=== PATIENT | female | born 1955 | race American Indian/Alaskan Native ===

== ENCOUNTER 2016-11-05 23:42 | Emergency (ER) | payer MEDICAID ==
--- NOTE | 2016-11-06 04:33 | Emergency Department Report ---
ED ENT HPI - General Chief complaint: Earache Stated complaint: EAR PAIN Time Seen by Provider: 11/06/16 04:24 Source: patient Mode of arrival: Ambulatory Limitations: No Limitations - History of Present Illness Initial comments: 11-year-old -[place] female with a past medical history of hypertension diabetes comes in for complaint of right ear being clogged for 5 days. Patient reports she's tried peroxide water at home but without success. She does not have a primary care provider at this time [place] She reports that she forgot to take her blood pressure medicine for 2 days. She reports that she does have blood pressure medication she has not with her. -: days(s) (5) Location: R ear Severity scale (0 -10): 6 Quality: other (difficulty hearing) - Related Data Home Medications Medication Instructions Recorded Confirmed Last Taken Carvedilol [Coreg] 6.25 mg PO BID 11/06/16 11/06/16 11/04/16 Insulin Glargine,Hum.rec.anlog 25 units SQ QHS 11/06/16 11/06/16 11/05/16 [Lantus Solostar] Insulin NPL/Insulin Lispro 8 units SQ TID 11/06/16 11/06/16 11/06/16 [HumaLOG Mix 75-25 Kwikpen] Losartan [Cozaar] 100 mg PO QDAY 11/06/16 11/06/16 11/04/16 metFORMIN [Glucophage] 500 mg PO QDAY 11/06/16 11/06/16 11/04/16 Allergies Allergy/AdvReac Type Severity Reaction Status Date / Time No Known Allergies Allergy Unverified 11/06/16 00:34 ED Dental HPI - General Chief complaint: Earache Stated complaint: EAR PAIN Time Seen by Provider: 11/06/16 04:24 Source: patient Mode of arrival: Ambulatory Limitations: No Limitations - Related Data Home Medications Medication Instructions Recorded Confirmed Last Taken Carvedilol [Coreg] 6.25 mg PO BID 11/06/16 11/06/16 11/04/16 Insulin Glargine,Hum.rec.anlog 25 units SQ QHS 11/06/16 11/06/16 11/05/16 [Lantus Solostar] Insulin NPL/Insulin Lispro 8 units SQ TID 0411/06/16 11/06/16 [HumaLOG Mix 75-25 Kwikpen] Losartan [Cozaar] 100 mg PO QDAY 11/06/16 11/06/16 11/04/16 metFORMIN [Glucophage] 500 mg PO QDAY 11/06/16 11/06/16 11/04/16 Allergies Allergy/AdvReac Type Severity Reaction Status Date / Time No Known Allergies Allergy Unverified 11/06/16 00:34 ED Review of Systems ROS: Stated complaint: EAR PAIN Other details as noted in HPI ED Past Medical Hx - Past Medical History Previous Medical History?: Yes Hx Hypertension: Yes Hx Diabetes: Yes Hx Arthritis: Yes - Surgical History Past Surgical History?: No - Social History Smoking Status: Current Every Day Smoker Substance Use Type: None - Medications Home Medications: Home Medications Medication Instructions Recorded Confirmed Last Taken Type Carvedilol [Coreg] 6.25 mg PO BID 11/06/16 11/06/16 11/04/16 History Insulin Glargine,Hum.rec.anlog 25 units SQ QHS 11/06/16 11/06/16 11/05/16 History [Lantus Solostar] Insulin NPL/Insulin Lispro 8 units SQ TID 11/06/16 11/06/16 11/06/16 History [HumaLOG Mix 75-25 Kwikpen] Losartan [Cozaar] 100 mg PO QDAY 11/06/16 11/06/16 11/04/16 History metFORMIN [Glucophage] 500 mg PO QDAY 11/06/16 11/06/16 11/04/16 History ED Physical Exam - General Limitations: No Limitations - Head Head exam: Present: atraumatic, normocephalic - Eye Eye exam: Present: normal appearance, PERRL, EOMI - ENT ENT exam: Present: normal exam, mucous membranes dry - Expanded ENT Exam Expanded TM/Canal exam: Loss of Landmarks: Right TM, Foreign Body: Right TM, Cerumen Impaction: Right TM Mouth exam: Present: normal external inspection - Neck Neck exam: Present: normal inspection, full ROM - Respiratory Respiratory exam: Present: normal lung sounds bilaterally ED Course Vital Signs 11/06/16 00:39 Temperature 98.1 F Pulse Rate 99 H Respiratory 18 Rate Blood Pressure 198/123 O2 Sat by Pulse 99 Oximetry Critical care attestation.: If time is entered above; I have spent that time in minutes in the direct care of this critically ill patient, excluding procedure time. ED Disposition Clinical Impression: Impacted cerumen of right ear Disposition: DISCHARGED TO HOME OR SELFCARE Is pt being admited?: No Does the pt Need Aspirin: No Condition: Stable Instructions: Cerumen Impaction (ED) Additional Instructions: Please try Debrox for cerumen impaction. I recommend you to be seen by the ear nose and throat provider. The referral is listed below. Referrals: PRIMARY CARE, [Primary Care Provider] - 3-5 Days ORLY MINOR MD [Staff Physician] - 3-5 Days Forms: Work/School Release Form(ED)
[2016-11-06 05:24] VITALS: BP 233/118
== END 2016-11-06 05:25 | disposition home or self-care (01) ==
LOC: ED 23:42
DX: H61.21 Impacted cerumen, right ear (principal); I10 Essential (primary) hypertension; E11.9 Type 2 diabetes mellitus without complications; M19.90 Unspecified osteoarthritis, unspecified site; F17.200 Nicotine dependence, unspecified, uncomplicated; Z79.4 Long term (current) use of insulin
CPT/HCPCS: 99282